=== PATIENT | male | born 1975 | race Hispanic/Latino ===

== ENCOUNTER 2017-03-20 18:02 | Emergency (ER) | payer OTHER ==
[2017-03-20 18:14] VITALS: TEMP 98
[2017-03-20 18:15] VITALS: BMI 33.4
[2017-03-20] MEDS ORDERED: Ipratropium 0.02% Inhal Soln (0.5 mg/2.5 ml) UD IH STA ×2 (18:21)
[2017-03-20] MEDS ORDERED: guaiFENesin 200 mg/10 ml Syrup UD PO STA (18:21)
[2017-03-20] MEDS ORDERED: Levalbuterol 1.25 MG/3 ML Inhal Soln UD IH STA ×2 (18:21)
--- NOTE | 2017-03-20 18:22 | ED PDOC ---
Arrival/HPI - General Time Seen by Provider: 03/20/17 18:05 Historian: Patient - History of Present Illness Narrative History of Present Illness (Text): 03/20/17 18:44 A 41 year old male, who denies any past medical history, reports to the emergency department complaining of a cough and shortness of breath that has developed about a month ago. Patient notes worsening symptoms about a week and half ago. He notes he has a cough with white phlegm. Patient reports no drug and alcohol use, but smokes about a pack of cigarettes a day. Patient also reports dizziness, but denies any chest pain, fevers, abdominal pain, nausea, vomiting or any other complaints at this time. Time/Duration: > month Symptom Onset: Sudden Symptom Course: Unchanged Activities at Onset: Rest Modifying Factors (Text): none Context: Home Associated Symptoms (Text): dizziness Past Medical History - Provider Review Nursing Documentation Reviewed: Yes Family/Social History - Physician Review Nursing Documentation Reviewed: Yes Family/Social History: No Known Family HX Allergies/Home Meds Allergies/Adverse Reactions: Allergies No Known Allergies Allergy (Unverified 03/20/17 18:19) Review of Systems - Physician Review All systems were reviewed & negative as marked: Yes - Review of Systems Constitutional: absent: Fevers ENT: Normal Respiratory: SOB, Cough Cardiovascular: absent: Chest Pain Gastrointestinal: absent: Abdominal Pain, Nausea, Vomiting Genitourinary Male: absent: Dysuria Neurological: absent: Headache, Dizziness Physical Exam Vital Signs Reviewed: Yes Vital Signs Temp Pulse Resp BP Pulse Ox 03/20/17 19:08 104 H 16 123/88 96 03/20/17 18:14 98 F 120 H 18 145/106 H 96 Temperature: Afebrile Blood Pressure: Hypertensive Pulse: Tachycardic Respiratory Rate: Normal Appearance: Positive for: Well-Appearing, Non-Toxic, Comfortable Pain Distress: None Mental Status: Positive for: Alert and Oriented X 3 - Systems Exam Head: Present: Atraumatic, Normocephalic Pupils: Present: PERRL Conjunctiva: Present: Normal Mouth: Present: Moist Mucous Membranes Pharnyx: Present: Normal. No: ERYTHEMA, EXUDATE Neck: Present: Normal Range of Motion Respiratory/Chest: Present: Wheezes (scattered), Decreased Breath Sounds, Other (bibasilar crackles L greater than R) Cardiovascular: Present: Tachycardic, Other (Regular Rhythm ) Abdomen: Present: Normal Bowel Sounds. No: Tenderness, Distention, Peritoneal Signs Upper Extremity: Present: Normal Inspection. No: Cyanosis, Edema Lower Extremity: Present: Normal Inspection. No: Edema Neurological: Present: GCS=15, CN II-XII Intact, Speech Normal Skin: Present: Warm, Dry, Normal Color. No: Rashes Psychiatric: Present: Alert, Oriented x 3, Normal Insight, Normal Concentration Medical Decision Making ED Course and Treatment: 03/20/17 18:34 Impression: 41 year old male with shortness of breath and cough for prolonged period. Differential Diagnosis included but are not limited to: PNA vs. bronchitis Plan: -- EKG -- Chest xray -- CT angio chest -- Urinalysis -- Labs -- Reassess and disposition Progress Notes: EKG: Ordered, reviewed, and independently interpreted the EKG. Rate : 118 BPM Rhythm : Sinus Tachycardia Interpretation : Left [place]anco Deviation, Q waves inferiorly, poor R wave progression, Normal intervals Comparison : No previous EKG for comparison. EKG #2: Rate : 90 Rhythm : NSR Interpretation : Left Blanco Deviation, Q waves inferiorly, resolution of poor R wave progression, Normal intervals. Chest xray: No active disease. CT Angiography Chest With Intravenous Contrast IMPRESSION: No acute process within the chest. No definite PE or dissection, although study is limited secondary to motion. Healed right-sided rib fractures are present. Dictated and Authenticated by: Shreyas Merino MD 03/20/2017 8:54 PM 03/20/17 21:52 Initial tachycardia was likely due to anxiety, as patient said he was anxious. Lungs now with resolution of air entry and resolution of wheezing. There is full resolution of his tachycardia. Labs are unremarkable and imaging shows no infiltrates but likely chronic lung disease developing. Patient has insurance and says he will f/u pmd. He has been advised to stop smoking and f/u pulmonary. Given Q waves inferiorly, he has also been advised to f/u cardiology. Ok for d/c with antibiotics, albuterol, and prednisone for treatment for bronchitis. - Lab Interpretations Lab Results: 03/20/17 18:15 03/20/17 18:15 Lab Results 03/20/17 20:40: Urine Opiates Screen Negative, Urine Methadone Screen Negative, Ur Barbiturates Screen Negative, Ur Phencyclidine Scrn Negative, Ur Amphetamines Screen Negative, U Benzodiazepines Scrn Negative, U Oth Cocaine Metabols Negative, U Cannabinoids Screen Negative 03/20/17 20:40: Urine Color Yellow, Urine Appearance Clear, Urine pH 6.0, Ur Specific [place] 1.015, Urine Protein Negative, Urine Glucose (UA) Negative, Urine Ketones Trace H, Urine Blood Negative, Urine Nitrate Negative, Urine Bilirubin Negative, Urine Urobilinogen 2.0 H, Ur Leukocyte Esterase Negative 03/20/17 18:15: Sodium 140, Potassium 3.8, Chloride 102, Carbon Dioxide 27, Anion Gap 15, BUN 10, Creatinine 0.9, Est GFR ( Amer) > 60, Est GFR (Non- Af Amer) > 60, Random Glucose 109, Calcium 10.0, Magnesium 2.1, Total Bilirubin 0.9, AST 24, ALT 37, Alkaline Phosphatase 86, Lactate Dehydrogenase 411, Total Creatine Kinase 103, Troponin I < 0.01, NT-Pro-B Natriuret Pep 54.3, Total Protein 8.4 H, Albumin 4.5, Globulin 4.0, Albumin/Globulin Ratio 1.1, Lipase 99 03/20/17 18:15: PT 11.1, INR 1.03, APTT 30.2 03/20/17 18:15: WBC 8.9, RBC 5.16, Hgb 16.3, Hct 46.3, MCV 89.7, MCH 31.6, MCHC 35.2, RDW 13.2, Plt Count 253, MPV 9.8, Gran % 53.8, Lymph % (Auto) 29.6, [place] % (Auto) 9.5 H, Eos % (Auto) 6.3 H, Baso % (Auto) 0.8, Gran # 4.77, Lymph # 2.6 , [place] # 0.8 H, Eos # 0.6, Baso # 0.07 I have reviewed the lab results: Yes - RAD Interpretation Radiology Orders: 03/20/17 18:20 CHEST PORTABLE [RAD] Stat 03/20/17 18:52 ANGIO CHEST PE PROTOCOL [CT] Stat - EKG Interpretation Interpreted by ED Physician: Yes Type: 12 lead EKG - Medication Orders Current Medication Orders: Levofloxacin/Dextrose (Levaquin 750mg) 750 mg in 150 mls @ 100 mls/hr IVPB STAT STA Stop: 03/20/17 22:59 Discontinued Medications Guaifenesin (Robitussin) 400 mg PO ONCE STA Stop: 03/20/17 18:22 Last Admin: 03/20/17 18:48 Dose: 400 mg Sodium Chloride (Sodium Chloride 0.9%) 1,000 mls @ 999 mls/hr IV .Q1H1M STA Stop: 03/20/17 19:52 Last Admin: 03/20/17 19:07 Dose: 999 mls/hr Iohexol (Omnipaque 350 100 Ml) Confirm Administered Dose 350 mg .ROUTE .STK-MED ONE Stop: 03/20/17 20:03 Ipratropium [place] (Atrovent) 0.5 mg IH STAT STA Stop: 03/20/17 18:22 Last Admin: 03/20/17 18:47 Dose: 0.5 mg Ipratropium [place] (Atrovent) 0.5 mg IH STAT STA Stop: 03/20/17 18:22 Last Admin: 03/20/17 18:47 Dose: 0.5 mg Levalbuterol HCl (Xopenex) 1.25 mg IH STAT STA Stop: 03/20/17 18:22 Last Admin: 03/20/17 18:47 Dose: 1.25 mg Levalbuterol HCl (Xopenex) 1.25 mg IH STAT STA Stop: 03/20/17 18:22 Last Admin: 03/20/17 18:47 Dose: 1.25 mg Methylprednisolone (Solu-Medrol) 125 mg IVP STAT STA Stop: 03/20/17 18:22 Last Admin: 03/20/17 18:47 Dose: 125 mg - Donte Statement The provider has reviewed the documentation as recorded by the Donte Basurto All medical record entries made by the Donte were at my direction and personally dictated by me. I have reviewed the chart and agree that the record accurately reflects my personal performance of the history, physical exam, medical decision making, and the department course for this patient. I have also personally directed, reviewed, and agree with the discharge instructions and disposition. Disposition/Present on Arrival - Present on Arrival Any Indicators Present on Arrival: No - Disposition Have Diagnosis and Disposition been Completed?: Yes Diagnosis: Bronchitis Disposition: HOME/ ROUTINE Disposition Time: 22:00 Patient Plan: Discharge Condition: GOOD Discharge Instructions (ExitCare): Acute Bronchitis (ED), COPD (Chronic Obstructive Pulmonary Disease) (ED), How Your Lungs Work (ED), How to Stop Smoking (ED) Additional Instructions: You must stop smoking. Take the medications as prescribed. Follow up with primary care, pulmonary (lung doctor) and cardiology (heart doctor). Return to the emergency department if any new concerning symptoms. Prescriptions: Albuterol HFA [Ventolin HFA 90 mcg/actuation (8 g)] 2 puff IH Q4H #1 inhaler Levofloxacin [Levaquin] 1 tab PO DAILY #9 tablet predniSONE [Prednisone] 2 tab PO DAILY #10 tab Referrals: Mikhail Tapia MD [Staff Provider] - Follow up with primary Jesse Workman DO [Staff Provider] - Follow up with primary Jayjay Mason MD [Staff Provider] - Follow up with primary
[2017-03-20] MEDS ORDERED: Sodium Chloride 0.9% 1,000 ML IV STA (18:52)
[2017-03-20 19:11] LABS: ADD MANUAL DIFF? NO
[2017-03-20 19:28] LABS: ALB/GLOB RATIO 1.1 (1.1-1.8); ALKALINE PHOSPHATASE 86 U/L (38-133); ALT/SGPT 37 U/L (7-56); AST/SGOT 24 U/L (15-59); BILIRUBIN,TOTAL 0.9 mg/dL (0.2-1.3); BLOOD UREA NITROGEN 10 mg/dL (7-21); CARBON DIOXIDE 27 mmol/L (21-33); CHLORIDE 102 mmol/L (98-107); GFR AFRICAN-AMERICAN > 60; GLUCOSE,RANDOM 109 mg/dL (70-110); LIPASE 99 U/L (23-300); MAGNESIUM 2.1 mg/dL (1.7-2.2); POTASSIUM 3.8 mmol/L (3.6-5.0); SODIUM 140 mmol/L (132-148); TOTAL PROTEIN 8.4 g/dL (5.8-8.3)
[2017-03-20 19:37] LABS: BASO # 0.07 K/mm3 (0.0-2.0); BASO % 0.8 % (0.0-3.0); EOS # 0.6 (0.0-0.7); EOS % 6.3 % (1.5-5.0); GRAN # 4.77 (1.4-6.5); GRAN % 53.8 % (50.0-68.0); HEMATOCRIT 46.3 % (42.0-52.0); LYMPH # 2.6 (1.2-3.4); LYMPH % 29.6 % (22.0-35.0); MEAN CELL VOLUME 89.7 fL (80.0-105.0); MEAN CORPUSCULAR HEMOGLOBIN 31.6 pg (25.0-35.0); MEAN CORPUSCULAR HGB CONC 35.2 g/dl (31.0-37.0); MEAN PLATELET VOLUME 9.8 fl (7.0-11.0); MONO # 0.8 (0.1-0.6); MONO % 9.5 % (1.0-6.0); PLATELET COUNT 253 10^3/uL (120.0-450.0); RED CELL DISTRIBUTION WIDTH 13.2 % (11.5-14.5); WHITE BLOOD COUNT 8.9 10^3/ul (4.5-11.0)
[2017-03-20 19:40] LABS: TROPONIN I < 0.01 ng/mL
[2017-03-20] MEDS ORDERED: Iohexol 350 MG/100 ML VIAL ONE (20:02)
[2017-03-20 20:07] LABS: INR 1.03 (0.93-1.08); PARTIAL THROMBOPLASTIN TIME 30.2 Seconds (23.7-30.8)
[2017-03-20 20:50] LABS: URINE BILIRUBIN NEGATIVE (NEGATIVE); URINE BLOOD NEGATIVE (NEGATIVE); URINE GLUCOSE (UA) NEGATIVE (NEGATIVE); URINE KETONE TRACE mg/dL (NEGATIVE); URINE LEUKOCYTE ESTERASE NEGATIVE Leu/uL (NEGATIVE); URINE PROTEIN NEGATIVE mg/dL (<30 mg/dL)
[2017-03-20 20:51] LABS: URINE APPEARANCE CLEAR (CLEAR); URINE COLOR YELLOW (YELLOW)
[2017-03-20] MEDS ORDERED: levoFLOXacin 750 mg in D5W 750 MG/150 ML BAG IVPB STA (21:30)
[2017-03-20 23:51] VITALS: RESP 18; O2SAT 95
[2017-03-20 23:52] VITALS: BP 126/74; PULSE 84
--- NOTE | 2017-03-21 10:16 | RAD ---
HISTORY: sob, cough COMPARISON: No prior. FINDINGS: LUNGS: The interstitial markings are increased and coarsened with a few scattered peribronchial cuffing changes. Findings could represent sequela of reactive/ inflammatory airway disease or viral illness. PLEURA: No significant pleural effusion identified, no pneumothorax apparent. CARDIOVASCULAR: Normal. OSSEOUS STRUCTURES: Several old healed right posterior rib fractures are present VISUALIZED UPPER ABDOMEN: Normal. OTHER FINDINGS: None. IMPRESSION: The interstitial markings are increased and coarsened with a few scattered peribronchial cuffing changes. Findings could represent sequela of reactive/ inflammatory airway disease or viral illness.
--- NOTE | 2017-03-21 13:13 | CT ---
PROCEDURE: CT Chest with contrast (Pulmonary Angiogram) HISTORY: sob, tachycardia - r/o PE COMPARISON: None available. TECHNIQUE: Axial computed tomography images were obtained of the chest in the pulmonary arterial phase of enhancement. Coronal and sagittal reformatted images were created and reviewed. Intravenous contrast dose: 90 cc of Omnipaque 350 contrast Radiation dose: Total exam DLP = 578.27 mGy-cm. This CT exam was performed using one or more of the following dose reduction techniques: Automated exposure control, adjustment of the mA and/or kV according to patient size, and/or use of iterative reconstruction technique. FINDINGS: PULMONARY ARTERIES: Examination is somewhat limited due to motion artifact and. Pulmonary trunk as well as right and left main pulmonary arteries are patent with no large central pulmonary embolism. There are several smaller areas of decreased attenuation within a few segmental branches that could represent artifact though tiny emboli not completely excluded AORTA: No acute findings. No thoracic aortic aneurysm. LUNGS: Minimal on linear scarring changes seen in the right upper lung field. No focal consolidation. PLEURAL SPACES: . No effusion or pneuomothorax. HEART: Borderline cardiomegaly. No significant pericardial effusion. LYMPH NODES: No lymphadenopathy. BONES, CHEST WALL: Old fractures right posterior 7th, 8th,9th, 10th ribs . OTHER FINDINGS: Visualized upper abdominal structures unremarkable. IMPRESSION: Move limited study. No evidence of large central pulmonary embolus. Note that the distal branches are poorly seen with several small areas of diminished contrast enhancement and subsequent fractures however the findings could be artifact. Tiny emboli cannot be completely excluded.
--- NOTE | 2017-03-21 22:11 | CARD ---
APPROVED REPORT EKG Measurement Heart [id number] <Conclusion> Sinus tachycardia Left axis deviation Low voltage QRS Inferior infarct, age undetermined Cannot rule out Anterior infarct, age undetermined Abnormal ECG
== END 2017-03-20 23:53 | disposition home or self-care (01) ==
LOC: ED 18:02
DX: J40 Bronchitis, not specified as acute or chronic (principal)
CPT/HCPCS: 71010; 71275; 80053; 80324; 80345; 80346; 80349; 80353; 80358; 80361; 81003; 82550; 83615; 83690; 83735; 83880; 83992; 84484; 85025; 85610; 85730; 87040; 93005; 96361; 96374; 96375; 99285; J2930; J7040; Q9967